=== PATIENT | female | born 2000 | race Two or more races ===

== ENCOUNTER 2024-12-19 13:33 | Emergency (ER) | payer MEDICAID, SELFPAY ==
[2024-12-19 13:36] VITALS: BP 114/74; PULSE 85; RESP 16; TEMP 36.6; O2SAT 100; BMI 25.7
[2024-12-19 13:38] VITALS: PULSE 88; RESP 16; O2SAT 99
--- NOTE | 2024-12-19 13:39 | XR_ITS ---
Examination: Complete OB ultrasound, less than 14 weeks, transabdominal Date and time of exam: December 19, 2024, 1611 hrs. Indications: Pelvic pain with vaginal bleeding onset today. Technique: Obstetrical ultrasound images less than 14 weeks performed via transabdominal imaging Findings: Uterus 7.5 cm endometrial stripe 1.3 cm. No uterine mass or intrauterine gestation. Right ovary 3.1 cm arterial flow. Left ovary 3.5 cm arterial flow Impression: No uterine mass or intrauterine gestation. Consider short-term follow-up transvaginal pelvic sonography
--- NOTE | 2024-12-19 13:39 | EDNOTE_ITS ---
ED OB Contraction Preg RMI/HPI General Chief complaint: Vaginal Bleeding Stated complaint: MISCARRIAGE Time Seen by Provider: 12/19/24 13:35 Arrival date/time: 12/19/24 13:33 RME / HPI RME / HPI Narrative: 24-year-old female patient was brought in for evaluation regarding vaginal bleeding. Patient is 1 para 0 0, about 5 weeks , started to have bleeding about 2 days ago, however today noted to have a lot of bleeding associated with pelvic pain. Denies any dizziness denies any vomiting denies any other complaints no medications taken prior to arrival. No checkup done yet. Related Data Allergies Allergy/AdvReac Type Severity Reaction Status Date / Time No Known Allergies Allergy Verified 12/19/24 13:51 Review of Systems Review of Systems Narrative Review of Systems: Review of system reviewed and within normal limits except mentioned in HPI ED Exam Narrative Physical exam: VITAL SIGNS: Reviewed. GENERAL APPEARANCE: Alert and interactive, follows commands, no acute distress, HEAD AND FACE: Non-traumatic. ENT: PERRL, pink conjunctivitis, eyelid no trauma, Mucous membrane moist. NECK: Supple, nontender, no nuchal rigidity. CHEST: No tenderness, no crepitus, no paradoxical movement, no retractions. LUNGS: Clear, well ventilated, symmetric, no rales, no wheezing, no ronchi, no stridor, good breath sounds bilaterally. HEART: Regular rate, regular rhythm, no murmur, no gallops. ABDOMEN: Soft, positive bowel sounds, nondistended, no guarding, nontender, no rebound, no masses, RECTAL: Deferred. GENITAL: Deferred. NEUROLOGICAL: Gross motor function intact sensory function intact, Appropriate for age. MUSCULOSKELETAL: low back nontender, full range of motion. EXTREMITIES: Nontender, full range of motion. SKIN: Color pink, dry, no rash, no lacerations, no abrasions, no contusions. LYMPHATICS: Deferred. Course Quality Measures none Orders Category Date Time Status US OB <= 14 weeks fetus Stat Exams 12/19/24 13:39 Completed ABO/RH Type Stat Lab 12/19/24 13:53 Completed Basic Metabolic Panel Stat Lab 12/19/24 13:53 Completed Beta HCG,Quantitative Stat Lab 12/19/24 13:53 Completed CBC Stat Lab 12/19/24 13:53 Completed Urinalysis Stat Lab 12/19/24 13:39 Ordered Vital Signs Vital signs: Vital Signs Temperature 97.9 F 12/19/24 13:36 Pulse Rate 85 12/19/24 13:36 Respiratory Rate 16 12/19/24 13:36 Blood Pressure 114/74 12/19/24 13:36 Pulse Oximetry (%) 100 12/19/24 13:36 Oxygen Delivery Method Room Air 12/19/24 13:36 Vaginal Bleeding MDM Narrative MDM Narrative: 24-year-old female patient was brought in for evaluation regarding vaginal bleeding. Patient is 1 para 0 0, about 5 weeks , started to have bleeding about 2 days ago, however today noted to have a lot of bleeding associated with pelvic pain. Denies any dizziness denies any vomiting denies any other complaints no medications taken prior to arrival. No checkup done yet. Patient CBC showed no sign of anemia. Patient's hCG was noted to be 935 patient is ABO type O+ ultrasound of the pelvis showed No uterine mass or intrauterine gestation. Consider short-term follow-up transvaginal pelvic sonography Results discussed with the patient. She is stable for discharge. Patient data External records reviewed:: None Clinical information provided by:: patient Social determinants that could affect healthcare access:: none Patient has the following chronic illnesses:: Plan How is presenting disease/condition affected by chronic disease/condition?: no chronic disease Evaluation data The following diagnostics were reviewed and interpreted by me:: lab results and radiology exam(s) Lab and/or radiology exams considered but not ordered:: None Interpretation Summary: See results [facility] Medications / Prescriptions Medications or Prescriptions considered but not ordered:: Plan Medication administrations:: None Consultations Consultation(s) initiated? (list below): No Diagnosis Vaginal Bleeding Differential Diagnosis: missed , threatened and vaginal bleeding Most likely diagnosis given after review of the tests above:: Miscarriage Admission Indicated Admission indicated?: not indicated Admission Request Was there a request for admission?: No Disposition Plan Disposition Plan: Discharge Discharge Attestation Discharge Attestation: The patient was given an opportunity to ask questions and understood the discharge instructions. Discharge instructions specifically effects, indications for sooner follow up or return to the emergency department, and the expected course of current diagnosis. Patient condition: Stable Discharge Plan Plan Patient Disposition: HOME (Self Care) Discharge Disposition comment: Stable Prescriptions/Referrals Referrals: No Primary/Family,Physician [Primary Care Provider] - In 1 week Problem List Clinical Impression: Miscarriage Patient/Caregiver Discharge Instructions Discharge Activity: activity as tolerated Education Materials: Understanding Miscarriage ... Additional Instructions: Thank you for the opportunity for serving you today. You are stable for discharged . You are advised to: Follow-up with your PCP in 1 to 2 days Return to ED for worsening of symptoms Increase oral fluids Return to emergency room in 2 to 3 days for repeat hCG. Print Language: Monegasque Stand Alone Forms: Roberta Award Info., Patient Portal Info Letter PA/JOE Supervising Physician PA/JOE Supervising Physician: MD Marilu
[2024-12-19 14:14] LABS: Basophils # (Auto) 0.0 Thou/mm3 (0.0-0.2); Basophils % (Auto) 1 % (0-2.5); Eosinophils # (Auto) 0.1 Thou/mm3 (0.0-0.5); Eosinophils % (Auto) 2 % (0-10); Hematocrit 34.9 % (36.0-46.0); Hemoglobin 12.1 g/dL (12.0-16.0); Immature Granulocytes Auto 0.02 Thou/mm3 (0.00-0.00); Lymphocytes # (Auto) 2.6 Thou/mm3 (1.0-4.8); Lymphocytes % (Auto) 39 % (10-50); Mean Corpuscular HGB Conc 34.7 g/dl (31.0-37.0); Mean Corpuscular Hemoglobin 30.6 pg (25.0-35.0); Mean Corpuscular Volume 88 fL (80-100); Monocytes # (Auto) 0.6 Thou/mm3 (0.0-0.8); Monocytes % (Auto) 9 % (0-12); Neutrophils # (Auto) 3.3 Thou/mm3 (1.8-7.7); Neutrophils % (Auto) 49 % (37-80); Nucleated Red Blood Cell # 0.00 Thou/mm3 (0.00-0.00); Nucleated Red Blood Cell % 0 /100 WBC (0); Platelet Count 265 Thou/mm3 (140-440); RDW Standard Deviation 40.0 fL (36.4-46.3); Red Blood Count 3.95 Miln/mm3 (4.00-5.20); White Blood Count 6.6 Thou/mm3 (3.6-11.0)
[2024-12-19 14:31] LABS: Anion Gap 10 (7-16); BUN/Creatinine Ratio 10 Ratio (12-20); Beta HCG,Quantitative 935 mIU/mL (<5.0); Blood Urea Nitrogen 5 mg/dL (9-23); Calcium 9.5 mg/dL (8.3-10.6); Carbon Dioxide 22.0 mMol/L (20.0-31.0); Chloride 109 mMol/L (98-107); Creatinine (Component) 0.5 mg/dL (0.6-1.3); Estimated Creatinine Clearance 141.6 mL/min (>60); Glucose 109 mg/dL (74-106); Osmolality,Calculated 279 (275-295); Potassium 3.6 mMol/L (3.4-5.1); Sodium 141 mMol/L (136-145); eGFR > 60 See Note
[2024-12-19 16:35] VITALS: BP 104/63; PULSE 72; RESP 19; TEMP 36.5; O2SAT 98
[2024-12-19 17:52] VITALS: BP 114/62; PULSE 70; RESP 18; TEMP 36.6; O2SAT 99
== END 2024-12-19 17:53 | disposition home or self-care (01) ==
PROVIDERS: Nurse Practitioner Family; Emergency Provider Family Medicine
DX: O03.9 Complete or unspecified spontaneous abortion without complication (principal)
CPT/HCPCS: 36415; 76801; 80048; 81001; 84702; 85025; 86900; 86901; 99283